=== PATIENT | male | born 1955 | race Caucasian/White ===

== ENCOUNTER 2020-05-06 08:34 | Emergency (ER) | payer MEDICARE, SELFPAY ==
--- NOTE | ~2020-05-06 | CT_ITS ---
EXAMINATION: CT chest wo con DATE: 05/06/2020 09:31 INDICATION: Possible aneurysm TECHNIQUE: Computed tomography (CT) of the chest was performed without intravenous contrast. Automate d exposure control and iterative reconstruction technique were employed. Exam dose: 257.41 mGy-cm to edie exam DLP. COMPARISON: 05/09/2016 2 view chest FINDINGS: Normal heart size. No pericardial or pleural effusion. The ascending aorta measures approximately 3.8 cm maximal diameter. The aortic arch and descending th oracic aorta measure approximately 2.8 cm diameter. No hilar or mediastinal mass lesion or lymphadenopathy. No pulmonary infiltrate or consolidation or pulmonary mass lesion is detected. Status post cholecystectomy. There are 2 up to approximately 1.5 cm upper pole right renal cysts. Normal morphology of the adrenal glands. IMPRESSION: Ascending aorta measures approximately 3.8 cm maximal diameter, within upper limit of no rmal Status post cholecystectomy Probable right renal cysts Reviewed, dictated and finalized at [facility]. Reviewed, dictated and finalized at [facility]. IMPRESSION: Ascending aorta measures approximately 3.8 cm maximal diameter, wi thin upper limit of normal Status post cholecystectomy Probable right renal cysts
--- NOTE | ~2020-05-06 | CT_ITS ---
EXAMINATION: CTA abdomen pelvis DATE: 05/06/2020 09:26 INDICATION: Pulsatile abdominal pain TECHNIQUE: Computed tomographic angiography (CTA) of the abdomen and pelvis was performed without and with 100 mL Omnipaque-350 intravenous contrast. Maximum intensity projection 3D-reconstructions of t he aorta and other arteries were constructed by the technologist on a separate workstation. The dose- length product (DLP) was 431.05 mGy-cm. Automated exposure control and iterative reconstruction techn ique were employed. COMPARISON: None. FINDINGS: There is no dissection or aneurysm of the abdominal aorta. Minimal calcified atherosclerosi s is noted. The right hepatic artery arises from the superior mesenteric artery. There is mild mass e ffect on the proximal celiac axis due to median arcuate ligament. There is no post stenotic dilatatio n. Two left and one right renal arteries are present. The superior mesenteric artery and inferior mes enteric artery are unremarkable. There is calcified atherosclerosis of the left common iliac artery w ithout hemodynamically significant stenosis. Pelvic arterial vasculature is otherwise unremarkable. Minimal dependent atelectasis is present in the lung bases. The heart size is normal. The gallbladder is surgically absent. The liver, spleen, pancreas, and adrenal glands are normal. The left kidney is unremarkable. There is a 1.6 cm exophytic soft tissue lesion projecting from the upper pole of the r ight kidney. No pathologically enlarged abdominal or pelvic lymph nodes are identified. There is no f ree intraperitoneal gas or evidence of bowel obstruction. The appendix is normal. There is severe lum bar spondylosis. IMPRESSION: 1. No aneurysm or dissection of the abdominal aorta. 2. 1.6 cm soft tissue lesion projecting from the right kidney upper pole. Follow-up with nonemergent MRI without and with contrast is recommended. Reviewed, dictated and finalized at location [facility]. IMPRESSION: 1. No aneurysm or dissection of the abdominal aorta. 2. 1.6 cm soft tissue lesion projecting from the right kidney upper pole. Follo w-up with nonemergent MRI without and with contrast is recommended.
[2020-05-06 08:40] VITALS: BP 156/106; PULSE 80; RESP 16; TEMP 36.3; O2SAT 100
--- NOTE | 2020-05-06 08:40 | ECG_ITS ---
Measurements Intervals [place] Rate: 84 P: 59 UT: 167 QRS: -42 QRSD: 89 T: 55 QT: 387 QTc: 458 Interpretive Statements SINUS RHYTHM ATRIAL PREMATURE COMPLEXES LEFT AXIS DEVIATION BASELINE WANDER- V2 BORDERLINE ECG Electronically Signed On 05-06-2020 9:14:55 CDT by Kings Tubbs D.O.
[2020-05-06 08:46] VITALS: BP 154/92; PULSE 85; RESP 14; O2SAT 98
[2020-05-06 09:14] LABS: Alanine Aminotransferase 24 U/L (4-50); Albumin Level 4.7 g/dL (3.5-5.1); Alkaline Phosphatase 68 U/L (38-126); Anion Gap 12.1 mmol/L (7-16); Aspartate Amino Transferase 30 U/L (17-59); Bilirubin,Total 0.6 mg/dL (0.2-1.3); Blood Urea Nitrogen 9 mg/dL (9-20); Calcium 9.2 mg/dL (8.4-10.2); Carbon Dioxide 28 mmol/L (22-30); Chloride 102 mmol/L (98-107); Estimated CRCL calculation 82 ml/min; Estimated Glomerular Filt Rate > 60; Glucose 106 mg/dL (75-110); Lipase 71 U/L (23-300); Potassium 4.1 mmol/L (3.4-5.0); Sodium 138 mmol/L (137-145)
[2020-05-06 09:19] LABS: Estimated CRCL calculation 82 ml/min; Estimated Glomerular Filt Rate > 60
[2020-05-06 09:20] LABS: INR 1.1; Prothrombin Time 13.5 Seconds (11.1-14.7)
[2020-05-06 09:21] LABS: Partial Thromboplastin Time 25.9 SECONDS (22.3-36.8)
--- NOTE | 2020-05-06 09:22 | ED.ARRPALP ---
HPI - Arrhythmia/Palpitations General Chief Complaint: Arrhythmia/Palpitations Stated Complaint: pounding stomach Time Seen by Provider: 05/06/20 08:45 Source: patient Mode of arrival: ambulatory Limitations: no limitations History of Present Illness HPI narrative: This patient is a 65 year old male who presents for evaluation of pounding in his stomach . Patient states for 3 months he has felt this constant pounding in his stomach. He states this is worse at night and it is making it difficult for him to sleep. He states he feels pounding in his abdomen and he feels it radiate up to his throat. He denies chest pain, abdominal pain, back pain or sob. He is concerned he is having a heart attack. Onset (ago): month(s) (3) Related Data Home Medications Medication Instructions Recorded Confirmed No Home Medications 11/22/19 Allergies Allergy/AdvReac Type Severity Reaction Status Date / Time codeine Allergy Unknown Unknown Verified 05/06/20 08:47 Penicillins Allergy Unknown Unknown Verified 05/06/20 08:47 Review of Systems Review of Systems: All systems reviewed & are unremarkable except as noted in HPI and below Constitutional: Constitutional: Denies chills, Denies fever(s) and Denies weakness Eyes: Eyes: Reports no additional eye complaints Cardiovascular: Cardiovascular: Denies chest pain and Reports rapid heart rate Respiratory: Respiratory: Denies cough, Denies dyspnea and Denies wheezing Gastrointestinal: Gastrointestinal: Denies abdominal pain, Denies diarrhea, Denies nausea and Denies vomiting Musculoskeletal: Musculoskeletal: Denies back pain PMFSH Surgical History Surgical History (Updated 05/06/20 @ 10:47 by Nicole Willingham MD) Hx of cholecystectomy Social History Social History Smoking status: Current every day smoker Alcohol intake: current Gender identity (if verbalized by the patient): Male Exam Narrative: Exam Narrative: GENERAL: Well-appearing, well-nourished, and in no acute distress. HEAD: Normocephalic, atraumatic EYES: PERRLA and EOMI, conjunctiva clear without discharge THROAT:Mucous membranes moist, Oropharynx normal without erythema, exudate, peritonsillar swelling or fluctuance NECK: Supple, without lymphadenopathy or mass RESPIRATORY: No respiratory distress, Airway patent, Respirations non-labored, Clear to auscultation without rales, rhonchi or wheeze HEART: Regular rate and rhythm. No murmur heard. Normal peripheral pulses. ABDOMEN: Soft, nontender, nondistended, normal active bowel sounds. No masses. No rebound or guarding, No organomegaly. pulsatile EXTREMITIES: No edema, normal strength with full range of motion. SKIN: Warm, dry, normal color without rash NEURO: Alert and oriented x3. CN 2-12 grossly intact. No focal deficits. PSYCH: Normal mood and affect. Course Reevaluation(s) Reevaluation #1: I discussed with patient CT did not show any acute process such as aneursym. I discussed there is kidney lesion that he will need follow up PCP Date: 05/06/20 Time: 11:07 Vital Signs Vital signs: Vital Signs Temperature 97.4 F L 05/06/20 08:40 Pulse Rate 80 05/06/20 08:40 Respiratory Rate 16 05/06/20 08:40 Blood Pressure 156/106 H 05/06/20 08:40 Pulse Oximetry 100 05/06/20 08:40 Temperature 97.4 F L 05/06/20 08:40 Pulse Rate 69 05/06/20 11:20 Respiratory Rate 20 05/06/20 11:20 Blood Pressure 117/79 05/06/20 11:20 Pulse Oximetry 98 05/06/20 08:46 MDM - Arrhythmia/Palpitations Lab Data Attestation: I reviewed the patient's lab results. Result diagrams: 05/06/20 08:48 05/06/20 09:17 Labs: Lab Results 05/06/20 05/06/20 05/06/20 Range/Units 08:48 08:48 08:48 WBC 4.9 (4.5-10.0) K/mm3 RBC 5.11 (4.6-6.20) M/mm3 Hgb 15.9 (14.0-18.0) g/dL Hct 46.9 (42.0-52.0) % MCV 91.8 (80-100) fl MCH 31.1 (26-34) pg MCHC 33.9 (32-36) g/dl RDW 12.
[2020-05-06 09:24] LABS: Basophils Percent Auto 0.8 % (0.2-1.2); Eosinophils Absolute Auto 0.2 K/mm3 (0-0.3); Eosinophils Percent Auto 3.9 % (0-4.4); Hematocrit 46.9 % (42.0-52.0); Hemoglobin 15.9 g/dL (14.0-18.0); Immature Granulocyte Absolute 0.02 K/mm3 (0.00-0.031); Immature Granulocyte Percent A 0.4 % (0-0.5); Lymphocytes Absolute Auto 1.64 K/mm3 (0.9-3.2); Lymphocytes Percent Auto 33.4 % (18.3-44.2); Mean Corpuscular HGB Conc 33.9 g/dl (32-36); Mean Corpuscular Hemoglobin 31.1 pg (26-34); Mean Corpuscular Volume 91.8 fl (80-100); Mean Platelet Volume 10.5 fl (7.4-10.4); Monocytes Absolute Auto 0.5 K/mm3 (0.1-0.6); Monocytes Percent Auto 10.8 % (2.6-8.5); Neutrophils Absolute Auto 2.5 K/mm3 (1.3-6.7); Neutrophils Percent Auto 50.7 % (45.5-73.1); Platelet Count Result 199 k/mm3 (150-375); Red Blood Count 5.11 M/mm3 (4.6-6.20); Red Cell Distribution Width 12.9 % (11.5-14.5); White Blood Count 4.9 K/mm3 (4.5-10.0)
[2020-05-06 09:55] LABS: Troponin I < 0.012 ng/mL (0.000-0.034)
[2020-05-06 11:20] VITALS: BP 117/79; PULSE 69; RESP 20
== END 2020-05-06 11:22 | disposition home or self-care (01) ==
PROVIDERS: Emergency Provider General Practice; PCP Internal Medicine
DX: R00.2 Palpitations (principal); I71.2 Thoracic aortic aneurysm, without rupture; F17.210 Nicotine dependence, cigarettes, uncomplicated
CPT/HCPCS: 36415; 71250; 74174; 80053; 83690; 83735; 84484; 85025; 85610; 85730; 93005; 99284; Q9967

== ENCOUNTER 2020-05-18 09:34 | Outpatient (CLI) | payer MEDICARE, SELFPAY ==
--- NOTE | ~2020-05-18 | MR_ITS ---
EXAMINATION: MR abdomen wo/w con INDICATION: Other specified disorders of the kidney and ureter, indeterminate right kidney mass on re cent CT TECHNIQUE: Coronal SSFSE ARC, WATER:coronal LAVA-FLEX, Coronal 2D FIESTA FatSat, Axial SSFSE BH ARC, Axial 3D DualEcho BH, Axial SSFSE-IR, Axial DWI b=500, Axial 2D FIESTA FatSat, pre and dynamic postco ntrast Axial LAVA ARC, postcontrast Coronal In and Opposed phase LAVA FLEX COMPARISON: CT, 05/06/2020 CONTRAST: Multihance, 16 cc FINDINGS: There is a 1.6 cm mildly T1 and T2 hyperintense lesion of the right kidney upper pole corre sponding to the CT finding in question. No associated enhancement is identified after contrast admini stration. Findings are most consistent with a proteinaceous cyst. An adjacent simple cyst of the righ t kidney measures 1.5 cm. The liver, spleen, pancreas, and adrenal glands are normal. The gallbladder is surgically absent. The right hepatic artery is again noted to arise from the superior mesenteric artery. There are two left and one right renal arteries. There are no dilated loops of bowel. No path ologically enlarged abdominal lymph nodes are identified. IMPRESSION: 1. Proteinaceous cyst of the right kidney corresponding to the lesion in question on CT. No suspiciou s kidney mass identified. Reviewed, dictated and finalized at [facility]. IMPRESSION: 1. Proteinaceous cyst of the right kidney corresponding to the lesion in questi on on CT. No suspicious kidney mass identified.
[2020-05-18 10:32] LABS: Estimated Glomerular Filt Rate > 60
== END 2020-05-18 09:35 | disposition home or self-care (01) ==
LOC: ANHIMG 09:36
PROVIDERS: PCP Internal Medicine; Visit Provider Internal Medicine
DX: N28.89 Other specified disorders of kidney and ureter (principal)
CPT/HCPCS: 36415; 74183; A9577

== ENCOUNTER 2020-06-04 10:26 | Outpatient (CLI) | payer MEDICARE, SELFPAY ==
--- NOTE | 2020-06-09 12:22 | WPDHOLTEREM ---
Holter/Event Monitor Holter/Event Monitor Date of procedure: 06/04/20 Procedure Type: 48 hour holter monitor Indications: Palpitations Conclusion: 1. 48 hour holter monitor on 06/04/20. 2. Underlying rhythm is sinus rhythm. HR range 58-122 bpm; average HR 78 bpm. 3. There are 1,049 premature supraventricular complexes, 4 supraventricular couplets, 10 supraventricular trigeminy. No supraventricular tachycardia. 4. There are 152 premature ventricular complexes and 3 ventricular trigeminy. No ventricular tachycardia. 5. No sinoatrial or atrioventricular blocks. No significant pauses greater than 2 seconds. 6. No symptoms available for correlation.
== END 2020-06-04 10:27 | disposition home or self-care (01) ==
LOC: ANHCARD 10:28
PROVIDERS: PCP Internal Medicine; Visit Provider Nurse Practitioner
DX: R00.2 Palpitations (principal)
CPT/HCPCS: 93225; 93226

== ENCOUNTER 2020-12-11 11:32 | Outpatient (CLI) | payer MEDICARE, SELFPAY | END 2020-12-11 11:33 | disposition home or self-care (01) | LOC: ANHCOVIDVC 11:32 | PROVIDERS: PCP Internal Medicine | DX: Z23 Encounter for immunization (principal) | CPT/HCPCS: 0001A; 91300 ==

== ENCOUNTER 2021-01-01 09:59 | Outpatient (CLI) | payer MEDICARE, SELFPAY | END 2021-01-01 10:00 | disposition home or self-care (01) | LOC: ANHCOVIDVC 09:59 | PROVIDERS: PCP Internal Medicine | DX: Z23 Encounter for immunization (principal) | CPT/HCPCS: 0002A; 91300 ==

== ENCOUNTER 2022-01-27 00:54 | Day surgery (SDC) | payer MEDICARE, SELFPAY ==
[2021-12-09 13:25] VITALS: BMI 23.8
--- NOTE | 2022-01-13 14:47 | PC.NURSE ---
Completed pre-procedure phone call. Updated patient with new times and dates of procedure. Patient denies any changes in health history. All questions answered.
--- NOTE | 2022-01-26 15:24 | PM.HPGS ---
History of Present Illness History of Present Illness Consent: Risks, benefits, and alternatives have been discussed and questions answered. Patient agrees to proceed with procedure. Chief complaint: hx of colon polyps, abdominal pain Narrative: Horace Acuna is a 66 year old male Was referred for colon cancer screening. His brother had colon cancer. The patient also had a small polyp removed about 7 years ago.He also has been having discomfort in his upper abdomen for the past year. It is often a pounding type sensation. He has not lost weight. He usually has 1 or 2 bowel movements per day. There is a family history of celiac disease. His son and other family members have been on a gluten free diet. He himself switched to gluten free diet which seems to have been helping. Review of Systems Review of Systems: All systems reviewed & are unremarkable except as noted in HPI and below PMFSH Past Medical History Medical History (Updated 01/27/22 @ 11:53 by Juan Rodriguez MD) Constipation Surgical History Surgical History Hx of cholecystectomy Social History Social History Smoking packs per day: 0.5 Smoking cigarettes per day: 10.0 Years smoked: 20 Smoking pack-years: 10.00 Smoking status: Current every day smoker Tobacco type: cigarettes Alcohol intake: current Drinks per week: 14 Alcohol use details: social Substance use: never Substance use type: does not use Living arrangements: with family Gender identity (if verbalized by the patient): Male Spiritual care concerns: No Meds Home Medications and Allergies Home Medications Medication Instructions Recorded Confirmed Type multivitamin with minerals 1 tablet PO DAILY 11/17/21 01/27/22 History Allergies Allergy/AdvReac Type Severity Reaction Status Date / Time codeine Allergy Unknown Unknown Verified 01/27/22 11:09 Penicillins Allergy Unknown Unknown Verified 01/27/22 11:09 Exam Resp: Auscultation: clear to auscultation bilaterally Cardio: Rate: regular rate Rhythm: regular rhythm GI: GI Palp: Yes Soft to palpation and No Tenderness to palpation present (GI) Assessment and Plan Assessment and plan (1) Colon cancer screening: Code(s): Z12.11 - Encounter for screening for malignant neoplasm of colon Status: Acute Assessment and Plan: Colonoscopy with possible biopsy or polypectomy or cautery or injection of substances. (2) Epigastric pain: Code(s): R10.13 - Epigastric pain Status: Acute Assessment and Plan: EGD with possible biopsy or dilatation or cautery.
[2022-01-27 11:11] VITALS: BP 126/85; PULSE 76; RESP 16; TEMP 36.3; O2SAT 100; BMI 23.6
[2022-01-27] MEDS: LACTATED RINGERS 1,000 ML 150 ML IV CONT (11:28)
--- NOTE | 2022-01-27 11:55 | WPDANESEPP ---
Anes - Eval Pre Procedure Procedure: Operation Date: 01/27/22 12:30 Proposed Procedures p Esophagogastroduodenoscopy & Screening Colonoscopy - Juan Rodriguez MD Date/Time: 01/27/22 11:55 Pre Op Diagnosis: hx of colon polyps, abdominal pain Patient Data Age: 66 Gender: M Height: 1.88 m Weight: 83.6 kg Last Vital Signs Temp 36.3 C L 01/27/22 11:11 Pulse 76 01/27/22 11:11 Resp 16 01/27/22 11:11 BP 126/85 01/27/22 11:11 Pulse Ox 100 01/27/22 11:11 Allergies Allergy/AdvReac Type Severity Reaction Status Date / Time codeine Allergy Unknown Unknown Verified 01/27/22 11:09 Penicillins Allergy Unknown Unknown Verified 01/27/22 11:09 Home Medications Medication Instructions Recorded Confirmed Type multivitamin with minerals 1 tablet PO DAILY 11/17/21 01/27/22 History Patient hx anesthesia problems: none Family hx anesthesia problems: none Results Review: All pre-operative results and documents have been reviewed as part of the pre-operative evaluation. [facility] Past Medical History Medical History Constipation Surgical History Surgical History Hx of cholecystectomy Social History Social History Smoking packs per day: 0.5 Smoking cigarettes per day: 10.0 Years smoked: 20 Smoking pack-years: 10.00 Smoking status: Current every day smoker Tobacco type: cigarettes Alcohol intake: current Drinks per week: 14 Alcohol use details: social Substance use: never Substance use type: does not use Living arrangements: with family Gender identity (if verbalized by the patient): Male Spiritual care concerns: No Exam Day of Procedure 01/27/22 11:55 Patient weight: normal Heart: regular rate and rhythm Lungs: normal air movement Airway: Mallampati scale class II Neurological: alert and oriented
--- NOTE | 2022-01-27 12:11 | WPDANESEFPP ---
Anes - Eval Final PreProcedure Day of Procedure 01/27/22 12:11 Patient weight: normal Heart: regular rate and rhythm Lungs: clear to auscultation and normal air movement Airway: Mallampati scale class II Neurological: alert and oriented Last oral intake: >/= 8 hours ASA classification: II Emergent: no Anesthetic plan: proceed Anesthesia type and monitoring: general GIVS Results Review: All pre-operative results and documents have been reviewed as part of the pre-operative evaluation. Informed Consent: The patient's anesthetic plan and its attendant risks and benefits were discussed with the patient/family/POA. Questions were solicited and answers provided to the satisfaction of the patient/family/POA.
--- NOTE | 2022-01-27 12:17 | SUR.OPER ---
EGD ENDED AT 1212, COLON BEGAN AT 1217.
[2022-01-27] MEDS: SIMETHICONE ORAL SUSPENSION 20 MG/0.3 ML 30 ML BOTTLE 0.6 ML IRRIGATION (12:21)
[2022-01-27 12:30] VITALS: BP 89/52; PULSE 73; RESP 16; O2SAT 95
[2022-01-27 12:40] VITALS: BP 106/60; PULSE 70; RESP 24; O2SAT 94
[2022-01-27 12:50] VITALS: BP 125/86; PULSE 66; RESP 20; O2SAT 99
== END 2022-01-27 13:00 | disposition home or self-care (01) ==
PROVIDERS: PCP Internal Medicine; Visit Provider Internal Medicine Gastroenterology
PROC: 0DJ08ZZ Inspection of Upper Intestinal Tract, Via Natural or Artificial Opening Endoscopic (ICD-10-PCS; CPT 43235; principal; 2022-01-27 12:30)
DX: Z12.11 Encounter for screening for malignant neoplasm of colon (principal); D12.2 Benign neoplasm of ascending colon; K62.1 Rectal polyp; K57.30 Diverticulosis of large intestine without perforation or abscess without bleeding; Z80.0 Family history of malignant neoplasm of digestive organs; K21.9 Gastro-esophageal reflux disease without esophagitis; K29.70 Gastritis, unspecified, without bleeding; F17.210 Nicotine dependence, cigarettes, uncomplicated
CPT/HCPCS: 45380; 43239; 87081; 88305; J2704; J7120

== ENCOUNTER 2022-08-19 08:28 | Emergency (ER) | payer MEDICARE, SELFPAY ==
[2022-08-19 09:11] VITALS: BP 147/93; PULSE 74; RESP 16; TEMP 35.9; O2SAT 100
--- NOTE | 2022-08-19 09:27 | ED.URI ---
HPI - URI/Sore Throat General Chief Complaint: Upper Respiratory Infection Stated Complaint: ear pain/drainage mostly rt ear Time Seen by Provider: 08/19/22 09:45 Source: patient and RN notes reviewed Mode of arrival: ambulatory Limitations: no limitations History of Present Illness HPI Narrative: 67-year-old male presents concern for right ear fullness, sinus problems, dizziness when he turns his head to the right. He reports chronic sinus problems for sometime with sinus fullness. He reports bilateral ear fullness, worse on the right. Reports room spinning dizziness when he turns his head to the right. He denies any severe headache, weakness in the knee, difficulty smiling, swallowing, speaking. Reports he tried meclizine without relief MD elicited complaint: nasal congestion and other (Ear fullness, dizziness) Related Data Allergies Allergy/AdvReac Type Severity Reaction Status Date / Time codeine Allergy Unknown Unknown Verified 08/19/22 09:18 Penicillins Allergy Unknown Unknown Verified 08/19/22 09:18 Review of Systems Review of Systems: CONSTITUTIONAL: Denies malaise, chills, sweats, or fever. EYES: Denies visual changes, redness, or discharge. ENT: Reports chronic rhinorrhea, congestion. Reports ear fullness, worse on the right CARDIOVASCULAR: Denies chest pain, palpitations, or edema. RESPIRATORY: Denies cough. Denies dyspnea. GASTROINTESTINAL: Denies abdominal pain, nausea, vomiting, diarrhea SKIN: Denies rash or itching. MUSCULOSKELETAL: Denies myalgia. NEUROLOGIC: Denies headache. Reports dizziness All systems reviewed & are unremarkable except as noted in HPI and below PMFSH Past Medical History Medical History (Updated 08/19/22 @ 09:56 by Sumi Sims NP) Constipation Surgical History Surgical History Hx of cholecystectomy Social History Social History Smoking packs per day: 0.5 Smoking cigarettes per day: 10.0 Years smoked: 20 Smoking pack-years: 10.00 Smoking status: Current every day smoker Tobacco type: cigarettes Alcohol intake: current Drinks per week: 14 Alcohol use details: social Substance use: never Substance use type: does not use Gender identity (if verbalized by the patient): Male Spiritual care concerns: No Comments At time of signature, agree with nursing past medical, surgical, social and family history. There is no relevant family history pertinent to the presenting complaint Exam Narrative: GENERAL: Well-appearing, well-nourished, and in no acute distress. HEAD: Normocephalic EYES: PERRLA, conjunctivae clear ENT: Nares clear, turbinates edematous. Mucous membranes moist. TM pearly ferguson with dull light reflex bilaterally; no tragal tenderness. Oropharynx not erythematous without lesions. Tonsils not enlarged and without exudate, no drooling, no hoarseness, no trismus, uvula midline. NECK: Supple. No lymphadenopathy CHEST: Clear to auscultation, breath sounds equal. No wheezing, rhonchi, rales, or stridor. No respiratory distress, speaks in full sentences. HEART: Regular rate and rhythm. No murmur heard. SKIN: Warm, dry, no rash. NEURO: Alert and oriented x3. No focal deficits. Cranial nerves 2-12 grossly intact. [place]-Hallpike test positive on the right PSYCH: Normal mood and affect Course Course Emergency Course: Patient is aware of diagnosis, understands and agrees to treatment plan. Anticipatory guidance given. Patient agrees to follow-up as directed and is aware of reasons to seek care at the emergency department. Portions of this record may have been created with voice recognition software Level of Care: Express Care Visit Vital Signs Vital signs: Vital Signs Temperature 96.7 F L 08/19/22 09:11 Pulse Rate 74 08/19/22 09:11 Respiratory Rate 16 08/19/22 09:11 Blood Pressure 147/93 H 08/19/22 09:11 Pulse Oximetry
== END 2022-08-19 10:04 | disposition home or self-care (01) ==
PROVIDERS: Emergency Provider Nurse Practitioner; PCP Internal Medicine
DX: J01.90 Acute sinusitis, unspecified (principal); B96.89 Other specified bacterial agents as the cause of diseases classified elsewhere; R42 Dizziness and giddiness; F17.210 Nicotine dependence, cigarettes, uncomplicated
CPT/HCPCS: 99213; G0463